=== PATIENT | male | born 1975 | race American Indian/Alaskan Native ===

== ENCOUNTER 2020-07-04 06:05 | Day surgery (SDC) | payer BC ==
[2020-07-04] MEDS ORDERED: BACTERIOSTATIC SODIUM CHLORIDE 0.9% 30 ML VIAL INFILTRATI ONE (06:15)
[2020-07-04] MEDS ORDERED: LACTATED RINGERS 1,000 ML ONE (06:16)
[2020-07-04] MEDS ORDERED: ceFAZolin/STERILE WATER 2 GM/20 ML SYRINGE IV NR (07:02)
[2020-07-04] MEDS ORDERED: MIDAZOLAM 2 MG/2 ML INJ IV NR (07:02)
[2020-07-04] MEDS ORDERED: propofoL 200 MG/20 ML VIAL IV ONE (07:10)
[2020-07-04] MEDS ORDERED: HYDROmorphone 1 MG/1 ML INJ IV PRN ×2 (07:14)
[2020-07-04] MEDS ORDERED: ONDANSETRON 4 MG/2 ML INJ IV PRN (07:14)
[2020-07-04] MEDS ORDERED: LACTATED RINGERS 1,000 ML IV SCH (07:15)
--- NOTE | 2020-07-04 07:15 | Anesthesia Day of Surgery ---
Anesthesia Day of Surgery - Day of Surgery Patient Examined: Yes Patient H&P Reviewed: Yes Patient is NPO: Yes
--- NOTE | 2020-07-04 07:17 | Anesthesia Consultation ---
Anesthesia Consult and Med Hx Date of service: 07/04/20 - Airway Anesthetic Teeth Evaluation: Good ROM Head & Neck: Adequate Mental/Hyoid Distance: Adequate Mallampati Class: Class II Intubation Access Assessment: Good - Pre-Operative Health Status ASA Pre-Surgery Classification: ASA1 Proposed Anesthetic Plan: General - Pulmonary Hx Smoking: Yes (STOPPED X 1 MONTH) Hx Sleep Apnea: No (KATE PRE SCREEN LOW RISK) - Cardiovascular System Hx Hypertension: Yes ("WATCHING"- NO MEDS) - Central Nervous System Hx Psychiatric Problems: No - Hematic Hx Anemia: No Hx Sickle Cell Disease: No - Other Systems Hx Cancer: No Hx Obesity: Yes
[2020-07-04] MEDS ORDERED: fentaNYL 100 MCG/2 ML INJ ONE (07:46)
[2020-07-04] MEDS ORDERED: ONDANSETRON 4 MG/2 ML INJ ONE (07:57)
[2020-07-04] MEDS ORDERED: LIDOCAINE MPF (2%) 20 MG/1 ML VIAL 5 ML ONE (07:57)
[2020-07-04] MEDS ORDERED: KETOROLAC 30 MG/1 ML INJ ONE (07:57)
[2020-07-04] MEDS ORDERED: SODIUM CHLORIDE 0.9% IRR 1,500 ML BOTTLE IR ONE (08:55)
--- NOTE | 2020-07-04 08:55 | Short Stay Summary ---
Short Stay Documentation Date of service: 07/04/20 - History H&P: obtained from office - Allergies and Medications Current Medications: Allergies No Known Allergies Allergy (Verified 06/29/20 17:54) Home Medications Medication Instructions Recorded Confirmed Last Taken Type No Known Home Medications [No 06/29/20 06/29/20 Unknown History Reported Home Medications] Active Medications Cefazolin Sodium (Cefazolin/Sterile Water 2 Gm/20 Ml Syringe) 2 gm IV PREOP NR Stop: 07/04/20 20:00 Hydromorphone HCl (Hydromorphone 1 Mg/1 Ml Inj) 0.25 mg IV Q10MIN PRN PRN Reason: Pain, Moderate (4-6) Stop: 07/04/20 22:00 Hydromorphone HCl (Hydromorphone 1 Mg/1 Ml Inj) 0.5 mg IV Q10MIN PRN PRN Reason: Pain , Severe (7-10) Stop: 07/04/20 22:00 Lactated Ringer's (Lactated Ringers) 1,000 mls @ 100 mls/hr IV DIRECT JAGDISH Last Admin: 07/04/20 06:55 Dose: 100 mls/hr Documented by: Midazolam HCl (Midazolam 2 Mg/2 Ml Inj) 2 mg IV ONCE NR Stop: 07/04/20 20:00 Last Admin: 07/04/20 07:10 Dose: 2 mg Documented by: Ondansetron HCl (Ondansetron 4 Mg/2 Ml Inj) 4 mg IV ONCE PRN PRN Reason: Nausea And Vomiting Stop: 07/04/20 20:00 - Brief post op/procedure progress note Date of procedure: 07/04/20 Pre-op diagnosis: left hydrocele Post-op diagnosis: same Procedure: hydrocelectomy with noel drain Anesthesia: JUANITA Surgeon: ISABELL LOZOYA Estimated blood loss: minimal Specimen disposition: to lab Condition: stable - Hospital course Hospital course: norco on chart - Disposition Condition at discharge: Stable Disposition: DC- TO HOME OR SELFCARE Short Stay Discharge Plan Follow up with: HÉCTOR ORTIZ MD [Primary Care Provider] - 7 Days
--- NOTE | 2020-07-04 09:06 | Operative Report ---
PREOPERATIVE DIAGNOSIS: Left hydrocele. POSTOPERATIVE DIAGNOSIS: Left hydrocele. PROCEDURE: Hydrocelectomy with half inch [place] drain. SURGEON: Nirmal Clark MD ANESTHESIA: General. ESTIMATED BLOOD LOSS: Minimal. FLUIDS: Crystalloid. COMPLICATIONS: No complications. INDICATIONS: This patient is a 45-year-old female with history of small hydrocele for several years, progressively increased in size. Scrotal ultrasound was consistent with a hydrocele baseball size. Discussed options, the patient agreed to proceed with surgical intervention. DESCRIPTION OF PROCEDURE: The patient was taken to the operative suite, placed in a supine position. After adequate general anesthesia, he was prepped and draped in a sterile fashion. A median rhaphe incision was made with Bovie. Sharp dissection was taken down to the tunica vaginalis. Obvious mass could be appreciated. Sac was opened. Serosanguineous fluid was evacuated. Hydrocele sac was excised and sent for routine pathologic evaluation. Whipstitch using 2-0 Vicryl was placed on the cut edge of the remnant sac 2-0 chromic running stitch. Adequate hemostasis was achieved. Right side was normal in appearance on the skin and ultrasound. Half inch Ritesh drain was brought out through a separate stab incision and tied in the skin with 2-0 Vicryl in an interrupted fashion. Dartos layer was closed with 2-0 chromic in a running fashion. Skin was closed with 3-0 chromic in an interrupted fashion. Fluffs and scrotal support was placed. The patient tolerated the procedure well and was extubated and taken to recovery room. She will go home on Ferdinand and follow up in the office. JOB# [id number] [facility]
--- NOTE | 2020-07-04 09:54 | Post Anesthesia Evaluation ---
- Post Anesthesia Evaluation Patient Participated: Yes Airway Patent: Yes Stable Respiratory Function: Yes Nausea/Vomiting: No Temp > 96.8F: Yes Pain Manageable: Yes Adequeate Hydration: Yes Anesthesia Complications: No Block Receding Appropriately: Not Applicable Patient on Ventilator: No
[2020-07-04 09:58] VITALS: BP 138/84
== END 2020-07-04 06:06 | disposition home or self-care (01) ==
LOC: OR 06:05
PROVIDERS: ATTEND Urology
DX: N43.3 Hydrocele, unspecified (principal); I10 Essential (primary) hypertension; E66.9 Obesity, unspecified; Z98.890 Other specified postprocedural states; Z98.52 Vasectomy status; Z68.34 Body mass index [BMI] 34.0-34.9, adult; Z87.891 Personal history of nicotine dependence
CPT/HCPCS: 55040; 88302; J0690; J1885; J2250; J2405; J2704; J3010; J7120